=== PATIENT | female | born 1985 | race Caucasian/White ===

== ENCOUNTER 2017-11-29 09:33 | Inpatient (IN) | payer OTHER ==
[~2017-11-29] VITALS: Ht 162.6 cm; Wt 95.2 kg
[2017-11-29] MEDS ORDERED: OXYTOCIN 30U/ 0.9% NaCL 500ML 500 ML IV ONE (21:04)
[2017-11-29] MEDS ORDERED: OXYTOCIN 30U/ 0.9% NaCL 500ML 500 ML IV PRN (21:04)
[2017-11-29 21:21] VITALS: BP 135/80
[2017-11-29 21:29] LABS: BASOPHILS # (AUTO) 0.05 x10^3/uL (0-0.1); BASOPHILS % (AUTO) 0 % (0-1); EOSINOPHILS # (AUTO) 0.14 x10^3/uL (0-0.4); EOSINOPHILS % (AUTO) 1 % (1-7); LYMPHOCYTES # (AUTO) 1.96 x10^3/uL (1-3.4); LYMPHOCYTES % (AUTO) 12 % (22-44); MD NO; MEAN CORPUSCULAR HEMOGLOBIN 31.3 pg (27.0-34.8); MEAN CORPUSCULAR HGB CONC 33.9 g/dL (32.4-35.8); MEAN CORPUSCULAR VOLUME 92.3 fL (80-100); MEAN PLATELET VOLUME 9.5 fL (7.4-10.4); MONOCYTES # (AUTO) 1.03 x10^3/uL (0.2-0.8); MONOCYTES % (AUTO) 6 % (2-9); NEUTROPHILS # (AUTO) 13.56 x10^3/uL (1.8-6.8); NEUTROPHILS % (AUTO) 81 % (42-75); PLATELET COUNT 209 x10^3/uL (130-400); RED BLOOD COUNT 4.18 x10^6/uL (3.82-5.3); RED CELL DISTRIBUTION WIDTH 14.3 % (9.6-15.2)
[2017-11-29] MEDS ORDERED: MISOPROSTOL 25 MCG TABLET VG PRN (21:30)
[2017-11-29] MEDS ORDERED: SODIUM CITRATE/CITRIC ACID 30 ML UDC PO PRN (21:30)
[2017-11-29] MEDS ORDERED: FENTANYL PF 100 MCG/2ML IVPush PRN (21:30)
[2017-11-29] MEDS ORDERED: METOCLOPRAMIDE 5 MG/ML, 2ML IVPush PRN (21:30)
[2017-11-29] MEDS ORDERED: ONDANSETRON 2MG/ML, 2ML IVPush PRN (21:30)
[2017-11-29] MEDS ORDERED: FENTANYL PF 100 MCG/2ML IV PRN (21:30)
[2017-11-29] MEDS ORDERED: TERBUTALINE 1 MG/ML, 1ML IVPush PRN (21:30)
[2017-11-29] MEDS ORDERED: CALCIUM CARBONATE 500 MG TAB.CHEW PO PRN (21:30)
[2017-11-29 21:33] VITALS: BP 135/80
[2017-11-29] MEDS ORDERED: MISOPROSTOL 25 MCG TABLET ONE (21:41)
[2017-11-29] MEDS ORDERED: OXYTOCIN 30U/ 0.9% NaCL 500ML 500 ML ONE (21:41)
[2017-11-29 21:45] LABS: INTERNATIONAL NORMALIZED RATIO 0.97 (0.93-1.1)
[2017-11-29] MEDS: LACTATED RINGERS 1,000 ML IV SCH (21:46)
[2017-11-30] MEDS ORDERED: MISOPROSTOL 25 MCG TABLET ONE (02:20)
[2017-11-30] MEDS: D5%-LACTATED RINGERS 1,000 ML IV SCH ×4 (05:04→21:04)
[2017-11-30] MEDS ORDERED: PREN1TAB60 PO (07:59)
[2017-11-30] MEDS ORDERED: ASPI-515 PO (07:59)
[2017-11-30 08:07] VITALS: BP 133/85
[2017-11-30] MEDS ORDERED: FENTANYL/BUPIV./NS/PF 250 ML EPIDCONT SCH ×2 (10:18→13:39)
[2017-11-30] MEDS: LACTATED RINGERS 1,000 ML IV SCH ×5 (11:20→21:39)
[2017-11-30] MEDS ORDERED: LIDOCAINE 1%, 20ML ONE (13:11)
[2017-11-30] MEDS ORDERED: FENTANYL/BUPIV./NS/PF 250 ML EPIDCONT ONE (13:11)
[2017-11-30] MEDS ORDERED: EPHEDRINE 50 MG/ML, 1ML IVPush PRN (14:00)
[2017-11-30] MEDS ORDERED: LACTATED RINGERS 1,000 ML IVBOLUS PRN (14:00)
[2017-11-30] MEDS ORDERED: NALOXONE 0.4 MG/ML, 1ML IVPush PRN (14:00)
[2017-12-01] MEDS ORDERED: OXYTOCIN 30U/ 0.9% NaCL 500ML 500 ML ONE (03:38)
[2017-12-01] MEDS: OXYTOCIN 30U/ 0.9% NaCL 500ML 500 ML IV SCH ×2 (04:13→14:13)
[2017-12-01] MEDS ORDERED: HYDROcodone/APAP 5/325 TABLET PO PRN (04:30)
[2017-12-01] MEDS ORDERED: CALCIUM CARBONATE 500 MG TAB.CHEW PO PRN (04:30)
[2017-12-01] MEDS ORDERED: BISACODYL 10 MG SUPP PR PRN (04:30)
[2017-12-01] MEDS ORDERED: ACETAMINOPHEN 325 MG TABLET PO PRN (04:30)
[2017-12-01] MEDS ORDERED: ONDANSETRON 2MG/ML, 2ML IV PRN (04:30)
[2017-12-01] MEDS ORDERED: MISOPROSTOL 200 MCG TABLET PO PRN (04:30)
[2017-12-01] MEDS ORDERED: IBUPROFEN 600 MG TABLET ONE (05:03)
[2017-12-01] MEDS: IBUPROFEN 600 MG TABLET PO PRN (05:05)
[2017-12-01 05:40] VITALS: BP 112/78
[2017-12-01] MEDS: PRENATAL VIT/IRON/FA 1 EACH TABLET PO SCH (08:12)
[2017-12-01] MEDS: DOCUSATE 100 MG CAPSULE PO PRN ×2 (08:12→20:43)
[2017-12-01 08:15] VITALS: BP 104/68
[2017-12-01 11:49] VITALS: BP 110/73
[2017-12-01] MEDS: ACETAMINOPHEN 325 MG TABLET PO PRN ×2 (13:49→20:43)
[2017-12-01] MEDS: ENOXAPARIN 40 MG/0.4 ML SQ SCH (15:10)
[2017-12-01 16:15] VITALS: BP 93/61
[2017-12-01 19:00] VITALS: BP 104/70
[2017-12-01 19:31] LABS: MEAN CORPUSCULAR HEMOGLOBIN 31.2 pg (27.0-34.8); MEAN CORPUSCULAR HGB CONC 33.7 g/dL (32.4-35.8); MEAN CORPUSCULAR VOLUME 92.5 fL (80-100); MEAN PLATELET VOLUME 9.8 fL (7.4-10.4); PLATELET COUNT 188 x10^3/uL (130-400); RED BLOOD COUNT 3.89 x10^6/uL (3.82-5.3); RED CELL DISTRIBUTION WIDTH 14.3 % (9.6-15.2)
[2017-12-01 19:59] LABS: MD YES
[2017-12-01 20:02] LABS: BAND#(MANUAL) 0.45 x10^3/uL; BANDS%(MANUAL) 2 % (0-7); BASOS#(MANUAL) 0.23 x10^3/uL (0-0.1); BASOS% (MANUAL) 1 % (0-1); LYMPH#(MANUAL) 1.58 x10^3/uL (1-3.4); LYMPHS% (MANUAL) 7 % (22-44); METAMYELOCYTES# (MANUAL) 0.23 x10^3/uL (0-0); METAMYELOCYTES% (MANUAL) 1 % (0-1); MONOS#(MANUAL) 0.68 x10^3/uL (0.3-2.7); MONOS% (MANUAL) 3 % (2-9)
[2017-12-01 20:03] LABS: <PLATELET ESTIMATE> ADEQUATE; <PLT MORPHOLOGY> NORMAL PLT MORPH; <RBC MORPHOLOGY> NORMAL; SEGS% (MANUAL) 86 % (42-75)
[2017-12-01 23:10] VITALS: BP 109/65
[2017-12-02] MEDS: OXYTOCIN 30U/ 0.9% NaCL 500ML 500 ML IV SCH ×2 (00:13→09:54)
[2017-12-02] MEDS: HYDROcodone/APAP 5/325 TABLET PO PRN ×2 (03:17→09:29)
[2017-12-02] MEDS: ENOXAPARIN 40 MG/0.4 ML SQ SCH (09:00)
[2017-12-02 09:20] VITALS: BP 114/70
[2017-12-02] MEDS: DOCUSATE 100 MG CAPSULE PO PRN (09:29)
[2017-12-02] MEDS: PRENATAL VIT/IRON/FA 1 EACH TABLET PO SCH (09:29)
[2017-12-02] MEDS: IBUPROFEN 600 MG TABLET PO PRN (09:29)
[2017-12-02] MEDS ORDERED: HYDR-3240 PO (11:27)
== END 2017-12-02 13:10 | disposition home or self-care (01) | DRG 775 ==
LOC: LDIP 21:00 → 2NW 12-01 05:10
PROVIDERS: ADMIT Obstetrics & Gynecology; ATTEND Obstetrics & Gynecology
PROC: 10E0XZZ Delivery of Products of Conception, External Approach (ICD-10-PCS; principal; 2017-12-01)
PROC: 0HQ9XZZ Repair Perineum Skin, External Approach (ICD-10-PCS; 2017-12-01)
PROC: 3E033VJ Introduction of Other Hormone into Peripheral Vein, Percutaneous Approach (ICD-10-PCS; 2017-12-01)
PROC: 10907ZC Drainage of Amniotic Fluid, Therapeutic from Products of Conception, Via Natural or Artificial Opening (ICD-10-PCS; 2017-12-01)
PROC: 3E0R3BZ Introduction of Anesthetic Agent into Spinal Canal, Percutaneous Approach (ICD-10-PCS; 2017-12-01)
PROC: 00HU33Z Insertion of Infusion Device into Spinal Canal, Percutaneous Approach (ICD-10-PCS; 2017-12-01)
DX: O69.1XX0 Labor and delivery complicated by cord around neck, with compression, not applicable or unspecified (principal); O99.12 Other diseases of the blood and blood-forming organs and certain disorders involving the immune mechanism complicating childbirth; D68.51 Activated protein C resistance; Z37.0 Single live birth; O76 Abnormality in fetal heart rate and rhythm complicating labor and delivery; O70.0 First degree perineal laceration during delivery; O77.0 Labor and delivery complicated by meconium in amniotic fluid; O71.89 Other specified obstetric trauma; Z3A.39 39 weeks gestation of pregnancy; Z79.82 Long term (current) use of aspirin; Z88.0 Allergy status to penicillin
CPT/HCPCS: 36415; 82565; 82803; 85025; 85384; 85610; 86850; 86900; J1650; J3490; J3010; J7120; J7121